=== PATIENT | female | born 2005 | race Two or more races ===

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

== ENCOUNTER 2024-03-07 13:30 | Emergency (ER) | payer OTHER ==
[~2024-03-07] VITALS: Ht 154.9 cm; Wt 67.6 kg
[2024-03-07] MEDS ORDERED: ONDANSETRON 4 MG TAB.RAPDIS ONE (15:10)
[2024-03-07] MEDS: ONDANSETRON 4 MG TAB.RAPDIS SL ONE (15:12)
[2024-03-07 15:14] VITALS: BP 124/59; TEMP 97.9; O2SAT 100
== END 2024-03-07 15:14 ==
LOC: ER 13:33
DX: F19.10 Other psychoactive substance abuse, uncomplicated (principal); I10 Essential (primary) hypertension; R11.0 Nausea; Z59.00 Homelessness unspecified
CPT/HCPCS: 99283; Q0162